=== PATIENT | female | born 1960 | race African-American/Black ===

== ENCOUNTER 2016-11-15 22:04 | Observation (INO) ==
[2016-11-15] MEDS ORDERED: NITROGLYCERIN 2% OINT 1 INCH/GM PACK TOP STA (23:09)
[2016-11-15] MEDS ORDERED: ONDANSETRON 4 MG/2 ML VIAL IV STA (23:09)
[2016-11-15] MEDS ORDERED: ALUM/MAG/SIMETH/LIDO VISC 1:1 30 ML BOTTLE PO STA (23:09)
[2016-11-15] MEDS ORDERED: MORPHINE 2 MG/1 ML SYRINGE IV STA (23:09)
[2016-11-15] MEDS ORDERED: ASPIRIN 325 MG TABLET PO STA (23:09)
--- NOTE | 2016-11-15 23:11 | Emergency Department Note ---
Robert Sifuentes Mantricia, am scribing for, and in the presence of, Renzo Alcala MD 22:56. Cari Sifuentes Charles R, MD, personally performed the services described in this documentation, ascribed by Sara Jones in my presence, and it is both accurate and complete 311 . Arrival - Arrival Chief Complaint: Chest Pain Stated Complaint: SOB BLOOD PRESSURE HIGH ED Nursing Triage Note: pt states she is seeing floaters and lightheaded with left neck pain that radiates down to chest. states she feels a little sob Mode of Arrival: Ambulatory Limitations: No Limitations Source: Patient - History of Present Illness HPI Narrative: Pt is a 55 y/o black female arriving to the ED by EMS with c/o chest pain that onset today. Pt states the pain radiates from her neck and along her chest. She notes SOB, dizziness upon sitting up, headache, and seeing "spots," but denies asthma and cardiac problems. She also notices the chest pain worsens when she walks and is relived when she relaxes. Onset (ago): hour(s) Consistency: constant Severity: mild Severity scale (1-10): 4 Allergies/Adverse Reactions: Allergies Allergy/AdvReac Type Severity Reaction Status Date / Time Penicillins Allergy RASH Verified 11/15/16 22:23 Review of System - Review of System 12 point system: reviewed and no additional remarkable complaints except as stated - Review of System Constitutional: Absent: chills, diaphoresis, fever Eyes: Present: other (seeing "spots"). Absent: discharge, pain Head/Ears/Nose/Throat: Absent: earache Respiratory: Absent: cough Cardiovascular: Present: chest pain (starts at neck and radiates to chest), dyspnea on exertion. Absent: palpitations Gastrointestinal: Absent: abdominal pain, nausea, vomiting, diarrhea Genitourinary female: Absent: abnormal menses, dysuria Musculoskeletal: Present: arthralgia, neck pain. Absent: arm pain, back pain, leg pain Skin: Absent: rash, lesions Neurological: Present: headache, weakness, vertigo (upon sitting up) Psychiatric: Absent: anxiety, depression Medical,Surgical,& Family Hx - Medical History Cardio: History of: Hypertension Respiratory: History of: Asthma - Social History Smoking Status: Never smoker Frequency of Alcohol Use: None Type of Drug Use: None Exam Vital Signs: Vital Signs Temperature 98.2 F 11/15/16 22:19 Pulse Rate 65 11/15/16 22:19 Respiratory Rate 16 11/15/16 22:19 Blood Pressure 143/86 11/15/16 22:19 O2 Sat by Pulse Oximetry 99 11/15/16 22:19 - General General appearance: alert, in no apparent distress - Head Head exam: Present: atraumatic, normocephalic, normal inspection - Eye Eye exam: Present: PERRL, EOMI - ENT ENT exam: Present: normal exam, normal oropharynx, mucous membranes moist, TM's normal bilaterally, normal external ear exam - Neck Neck exam: Present: normal inspection, full ROM, trachea midline. Absent: tenderness - Chest Chest inspection: Present: symmetric chest wall rise, tenderness (chest pain) - Respiratory Respiratory exam: Present: normal lung sounds bilaterally - Cardiovascular Cardiovascular exam: Present: regular rate, normal rhythm, normal heart sounds - Abdominal Exam Abdominal exam: Present: soft, normal bowel sounds. Absent: distention, tenderness, guarding - Extremities Exam Extremities exam: Present: normal inspection, full ROM, normal capillary refill. Absent: tenderness, pedal edema - Back Exam Back exam: Present: normal inspection, full ROM. Absent: tenderness - Neurological Exam Neurological exam: Present: alert, oriented X3, CN II-XII intact, reflexes normal - Psychiatric Psychiatric exam: Present: normal affect, normal mood - Skin Skin exam: Present: warm, dry, intact, normal color Course - Consultations Consultation #1: Hospitalist will admit patient Time: 00:58 Results - Labs CBC & BMP: 11/15/16 22:55 11/15/16 22:55 - Diagnostic Findings Procedure: Chest x-ray: image reviewed by me (No acute finding), CT: report reviewed by me (Negative CT head) Disposition Clinical Impression: Atypical chest pain, Diplopia, Dizziness Case discussed with: patient Disposition: Still a Patient Condition: Stable Time of Disposition: 00:58
[2016-11-15 23:19] LABS: Basophils % 0.4 % (0.0-0.8); Eosinophils # 0.2 10*3/uL (0.0-0.87); Eosinophils % 3.7 % (0.00-10.9); Hematocrit 38.8 VOL% (35.7-47.0); Hemoglobin 12.7 GM/DL (12.0-16.0); Immature Granulocytes % 0.2 %; Immature Granulocytes Absolute 0.01 #; Lymphocytes # 2.1 10*3/uL (1.4-4.0); Lymphocytes % 39.4 % (21.3-54.2); Mean Corpuscular HGB Conc 32.7 GM/DL (32-36); Mean Corpuscular Hemoglobin 27 PG (27-34); Mean Corpuscular Volume 83.3 FL (87-102); Mean Platelet Volume 10.6 FL (9.6-12.0); Monocytes # 0.5 10*3/uL (0.11-0.8); Monocytes % 8.9 % (1.7-12.7); Neutrophils # 2.6 10*3/uL (1.4-7.4); Neutrophils % 47.4 % (38.7-73.9); Platelet Count 210 T/CUMM (130-400); Red Blood Count 4.66 MC/CUMM (3.8-5.5); Red Cell Distribution Width 14.9 % (9.3-17.3); White Blood Count 5.4 T/CUMM (4-12)
[2016-11-15] MEDS ORDERED: ONDANSETRON 4 MG/2 ML VIAL ONE (23:28)
[2016-11-15] MEDS ORDERED: ASPIRIN 325 MG TABLET ONE (23:28)
[2016-11-15] MEDS ORDERED: NITROGLYCERIN 2% OINT 1 INCH/GM PACK TOP ONE (23:28)
[2016-11-15] MEDS ORDERED: ALUM/MAG/SIMETH/LIDO VISC 1:1 30 ML BOTTLE PO ONE (23:28)
[2016-11-15] MEDS ORDERED: MORPHINE 2 MG/1 ML SYRINGE ONE (23:28)
[2016-11-15 23:30] LABS: D-Dimer <= 0.5 MG/L FEU; PT Patient Result 10.6 SECS
[2016-11-15 23:39] LABS: Alanine Aminotransferase 29 U/L (13-56); Albumin 3.9 G/DL (3.4-5.0); Alkaline Phosphatase 69 U/L (45-117); Aspartate Amino Transferase 18 U/L (0-37); Bilirubin,Total < 0.39 MG/DL (0.2-1.0); Blood Urea Nitrogen 19 MG/DL (7-18); Calcium 9.2 MG/DL (8.5-10.1); Glucose 104 MG/DL (74-106); Magnesium 2.3 MG/DL (1.8-2.4); Osmolality,Calculated 287.8 MOS/KG (273-304); Potassium 3.6 MMOL/L (3.5-5.1); Sodium 144 MMOL/L (136-145); Total Protein 6.9 G/DL (6.4-8.3)
[2016-11-16 01:32] LABS: Apearance,Urine Slightly Hazy (Clear); Bacteria,Urine Many /HPF (Few); Bilirubin,Urine Negative (Negative); Blood, Urine Negative (Negative); Glucose,Urine (UA) Negative (Negative); Hyaline Casts,Urine 22 /LPF (0-3); Ketones,Urine Negative (Negative); Mucus,Urine Moderate /LPF (Occasional); Nitrite,Urine Positive (Negative); Protein,Urine Negative; Squamous Epithelial Cell,Urine Occasional /HPF (0-10); Urine Color Yellow (Yellow); Urine Specific Gravity 1.018 (1.001-1.035); Urine Urobilinogen < 2.0 EU/DL (0.2-1.0); WBC,Urine 16 /HPF (0-6)
[2016-11-16 01:43] LABS: Barbiturates Screen,Urine Negative (Negative); Benzodiazepines Screen,Urine Negative (Negative); Cannabinoid Screen,Urine Negative (Negative); Opiate Screen,Urine Positive (Negative); Phencyclidine Screen,Urine Negative (Negative)
--- NOTE | 2016-11-16 03:43 | Hospitalist History & Physical ---
Assessment and Plan (1) Hypertension Status: Acute Assessment and plan: Untreated. Patient noncompliant. Resume lisinopril. Current Visit: Yes Qualifiers: Hypertension type: essential hypertension Qualified Code(s): I10 - Essential (primary) hypertension (2) Anxiety Status: Acute Assessment and plan: Start Xanax. Informed patient she moved to follow-up as an outpatient with her primary care doctor. Current Visit: Yes (3) Depression Status: Acute Current Visit: Yes (4) Vision changes Status: Acute Assessment and plan: Likely related to panic attack and elevated blood pressure. Monitor for improvement. Current Visit: Yes (5) Atypical chest pain Status: Acute Assessment and plan: Serial cardiac enzymes. Admit observation on telemetry. Home in a.m. if all labs stable. Current Visit: Yes History of Present Illness Chief complaint: chest pain, neck pain History of present illness: Ms. Wise is a 55 year old black female arriving to the ED by EMS with c/o chest pain that onset today. Pt states the pain radiates from the right side of her neck and along her chest. She notes SOB, dizziness upon sitting up, headache , and seeing "spots." She has asthma and has not been taking her lisinopril hydrochlorothiazide for the last year. She also reports a history of anxiety treated with Xanax but she has not taken that in over a year and a half. She also notices the chest pain worsens when she walks and is improved when she relaxes. She reports a stressful time in her life as she is trying to move to be closer to her new job. She is looking for an apartment but cannot afford the ones she has seen. She also appears to have some marital issues. She reports feeling depressed but is not currently on any medications. Her primary care physician is Dr. Londono in [facility]. She became tearful during the course of my interview. She reports her pain has improved but comes and goes. It is sharp in nature. It is not reproducible. Allergies Allergy/AdvReac Type Severity Reaction Status Date / Time Penicillins Allergy RASH Verified 11/15/16 22:23 Medical,Surgical,& Family Hx - Medical History Cardio: History of: Hypertension Psychological: History of: Anxiety Disorders Respiratory: History of: Asthma - Surgical History Abdominal Surgeries: Surgical HX of: Cholecystectomy Reproductive Surgeries: Surgical HX of;: Hysterectomy - Family History Family History: Reports;: Family Heart Disease, Family Hypertension, Family Stroke - Social History Smoking Status: Never smoker Frequency of Alcohol Use: None Type of Drug Use: None Marital Status: Lives With:: Alone Functional capacity: independent ambulation 12 point system: reviewed and no additional remarkable complaints except as stated - Constitutional Constitutional: Present: as per HPI Exam - Constitutional Exam: Constitutional System: Mild distress. No tremulousness. Head: Normocephalic, atraumatic. Ears, Nose and Throat System: No pain or tenderness. No epistaxis or discharge Eyes System: Pupils equal, round, and reactive. Extraocular muscles intact. Neck: Supple, without adenopathy, No jugular venous distention. No thyromegaly, neck mass, or prior surgery apparent. Respiratory System: Chest clear to auscultation. Cardiovascular System: Heart with regular rate and rhythm. No murmur. GI System: Abdomen soft, nontender. Normo active bowel sounds present. Musculoskeletal System: limbs with no pedal edema. Full distal pulses. Neurological System: No discernable sensory deficit. No aphasia Psychiatric System: Conversation is rational Results - Labs CBC & BMP: 11/15/16 22:55 11/15/16 22:55 Lab Results: I have reviewed the past 24 hour labs
[2016-11-16] MEDS ORDERED: ALPRAZolam 0.5 MG TABLET PO PRN (04:36)
[2016-11-16] MEDS ORDERED: NITROGLYCERIN SL 0.4 MG TABLET SL PRN (04:36)
[2016-11-16] MEDS ORDERED: ACETAMINOPHEN 325 MG TABLET PO PRN (05:05)
[2016-11-16] MEDS ORDERED: ZALEPLON 5 MG CAPSULE PO PRN (05:05)
[2016-11-16] MEDS ORDERED: MORPHINE 2 MG/1 ML SYRINGE IV PRN (05:05)
--- NOTE | 2016-11-16 06:14 | EKG Report ---
Stationary ECG Study [facility] ER Test Date: 11/15/2016 10:30:52 PM Pat Name: GERRI SOLORIO Department: Room: 282 Gender: F Clinical Team Manager: : 1960 Requested by: Renzo Peraza Order Number: [id number] Reading MD: OPAL CORREIA Intervals [place] Rate: 62 P: 61 [place]: 168 QRS: 78 QRSD: 95 T: 62 QT: 403 QTc: 409 Interpretive Statements SINUS RHYTHM Electronically Signed On 11-19-16 12:03:54 CDT by OPAL CORREIA [email or web address]
--- NOTE | 2016-11-16 06:15 | EKG Report ---
Stationary ECG Study [facility] Test Date: 11/16/2016 5:40 AM Pat Name: GERRI SOLORIO Department: Room: 282 Gender: F Final Assembler: : 1960 Requested by: Renzo Peraza Order Number: [id number] Reading MD: OPAL CORREIA Intervals [place] Rate: 52 P: 43 [place]: 178 QRS: 75 QRSD: 103 T: 63 QT: 437 QTc: 418 Interpretive Statements SINUS BRADYCARDIA Electronically Signed On 11-19-16 12:10:24 CDT by OPAL CORREIA [email or web address]
--- NOTE | 2016-11-16 06:49 | XRay Report ---
XR chest 1V portable Indication: Chest pain Comparison: None available Findings: The heart and mediastinum are normal in size and configuration. The pulmonary vascularity is normal in caliber. No lung infiltrates, effusions, pneumothorax or other abnormality is demonstrated. Impression: Normal chest x-ray PROCEDURE INTERPRETED AT [facility] DEPARTMENT OF RADIOLOGY Final Report Signed by: Dr. Rod Chaidez
--- NOTE | 2016-11-16 06:54 | CT Report ---
CT brain Indication: Vertigo Comparison: None available Technique: Axial CT imaging of the brain is performed without contrast with 3 mm increments. Findings: No evidence of hemorrhage, mass mass effect midline shift or acute infarct seen. The brain parenchyma attenuation and differentiation appears within normal limits. The ventricles and cisterns are normal in caliber. No cranial or skull base abnormality is identified. Impression: No evidence of abnormality demonstrated. This CT exam was performed using one or more the following dose reduction techniques: Automated exposure control, adjustment of the MA and/or KV according to patient size, or use of iterative reconstruction technique. PROCEDURE INTERPRETED AT [facility] DEPARTMENT OF RADIOLOGY Final Report Signed by: Dr. Rod Chaidez
[2016-11-16 07:15] LABS: Risk Ratio 2.41; Thyroid Stimulating Hormone 2.5 uIU/ml (0.358-3.74); VLDL CHOLESTEROL 11.2 MG/DL
[2016-11-16] MEDS ORDERED: LISINOPRIL 5 MG TABLET PO SCH (09:00)
[2016-11-16] MEDS ORDERED: ENOXAPARIN 40 MG/0.4 ML SYRINGE SUBCUT SCH (09:00)
[2016-11-16] MEDS ORDERED: CIPROFLOXACIN 500 MG TABLET PO SCH (09:00)
[2016-11-16] MEDS ORDERED: ASPIRIN EC 81 MG TABLET PO SCH (09:00)
--- NOTE | 2016-11-16 11:39 | Discharge Summary ---
<Andreas Kenny - Last Filed: 11/16/16 11:45> Discharge Plan - Discharge Data Disposition: Disch To Home/Self Care Condition at Discharge: Stable Discharge Diet: heart healthy Activity: resume usual activities as tolerated Hygiene: no restrictions Weight Bearing at Discharge: full weight bearing Contact your physician if you experience:: fever over 101, Shortness of breath - Discharge Medications New PARoxetine [Paxil] 20 mg PO DAILY #30 tablet - Follow Up or Referral - Forms/Instructions Instructions: Paroxetine (By mouth), Anxiety (DC) Exam - Constitutional Vitals: Period Temp Pulse Resp BP Sys/Hunter Pulse Ox Last 24 Hr 96.8 F-96.9 F 62-65 18-18 112-125/57-70 95-95 General appearance: over weight - Head Head exam: Present: normocephalic, atraumatic - Eye Eye exam: Present: EOMI Pupils: Present: ROM - ENT ENT exam: Present: normal oropharynx - Neck Neck exam: Present: normal inspection - Respiratory Respiratory exam: Present: clear to auscultation bilaterally - Cardiovascular Cardiovascular exam: Present: regular rate and rhythm - GI/Abdominal GI/Abdominal exam: Present: normal bowel sounds, soft - Extremities Exam Extremities exam: Present: full ROM - Neurological Exam Neurological exam: Present: alert, oriented X3, CN II-XII intact - Psychiatric Psychiatric exam: Present: normal mood, other (Subdued mood and affect changes been put on Paxil which she says he used to use about a year ago.) - Skin Skin exam: Present: normal color, warm, dry Discharge Results Procedures and tests throughout hospitalization: Pending Orders 11/16/16 Urine Culture Routine Labs on day of discharge: Labs from last 24 hours 11/16/16 11/16/16 11/16/16 04:50 04:50 01:22 Troponin I < 0.015 Triglycerides 56 Cholesterol 190 LDL Cholesterol 101.0 VLDL Cholesterol 11.2 HDL Cholesterol 79 H Heart Disease Risk Ratio 2.41 TSH 3rd Generation 2.500 Urine Color Urine Appearance Urine pH Ur Specific [place] Urine Protein Urine Glucose (UA) Urine Ketones Urine Blood Urine Nitrate Urine Bilirubin Urine Urobilinogen Urine Leukocytes Urine WBC Ur Squamous Epith Cells Urine Bacteria Hyaline Casts Urine Mucus Ur Culture Indicated? Urine Opiates Screen Positive H Ur Barbiturates Screen Negative Ur Phencyclidine Scrn Negative U Amphetamine/Methamph Negative U Benzodiazepines Scrn Negative U Cocaine Metab Screen Negative U Cannabinoids Screen Negative 11/16/16 01:22 Troponin I Triglycerides Cholesterol LDL Cholesterol VLDL Cholesterol HDL Cholesterol Heart Disease Risk Ratio TSH 3rd Generation Urine Color Yellow Urine Appearance Slightly hazy Urine pH 5.0 Ur Specific [place] 1.018 Urine Protein Negative Urine Glucose (UA) Negative Urine Ketones Negative Urine Blood Negative Urine Nitrate Positive H Urine Bilirubin Negative Urine Urobilinogen < 2.0 H Urine Leukocytes Negative Urine WBC 16 Ur Squamous Epith Cells Occasional Urine Bacteria Many Hyaline Casts 22 Urine Mucus Moderate Ur Culture Indicated? Results to follow Urine Opiates Screen Ur Barbiturates Screen Ur Phencyclidine Scrn U Amphetamine/Methamph U Benzodiazepines Scrn U Cocaine Metab Screen U Cannabinoids Screen DS: Provider Date of admission: 11/16/16 01:12 Primary care physician: . No PCP Attending physician on admission: Andreas Kenny MD Consults: 11/16/16 05:59 Consult to Dietitian [CONS] Routine Reason for Dietitian: Other Consult Comment: Admission assessment met criteria Discharging clinician: Andreas Kenny MD <Rajesh Herrera - Last Filed: 11/16/16 13:39> Hospital Course - Hospital Course Hospital Course: This is a 55 year old black female that presented to ED at [facility] on 11/14 with a chief complaint of chest pain. She reported an onset of the presenting complaint on the day of presentation. She reported that the pain radiated from the right side of her neck and along her chest. She reported shortness of breath, dizziness upon sitting up, headache, and visual changes. The patient reported a medical history of asthma and hypertension; however reported that she has not taken her medication for the last year. She also reports a remote history of anxiety for which she takes Xanax periodically ; however sh has not taken any in over a year. She reported that the chest pain increases in intensity with ambulation; however improves with rest. In addition , the patient reported multiple stressful issues occurring within her life at the present time. Lastly, she reported both financial and housing issues at the present time. She did report depression like symptoms at the time of admission Her primary care physician is Dr. Londono in [facility]. She was admitted under the hospitalist services for continuation of care. Labs were obtained; which revealed no acute abnormalities. Chest radiograph and CT of head were essentially unremarkable. Cardiac enzymes were benign. The patients condition is stable; no further episode similar in nature to the presenting complaint noted. We feel that she is appropriate for discharge to follow-up with her PCP as directed.
[2016-11-16 11:56] VITALS: BP 112/57
[2016-11-17] MEDS ORDERED: PARoxetine 20 MG TABLET PO SCH (09:00)
== END 2016-11-16 14:35 | disposition home or self-care (01) ==
LOC: N.ED 22:04 → N.EDINP 22:04 → N.TELEN 11-16 03:26
PROVIDERS: ADMIT Internal Medicine Infectious Disease; ATTEND Internal Medicine Infectious Disease